=== PATIENT | male | born 1955 | race Caucasian/White ===

== ENCOUNTER 2017-02-03 12:54 | Emergency (ER) | payer OTHER ==
[~2017-02-03] VITALS: Ht 170.1 cm; Wt 77.1 kg
[~2017-02-03 12:54] MED LIST: ANAPROX DS550 MG PO; ASPIRIN FOR CHI81 MG PO; AUGMENTIN 875 M1 TAB PO; CALAN,ISOPTIN80 MG PO; MOTRIN800 MG PO; NKHM; PRILOSEC20 MG PO; TOPAMAX50 MG PO
== END 2017-02-03 18:59 | disposition short-term general hospital (02) ==
LOC: ED 12:54
DX: S92.002B Unspecified fracture of left calcaneus, initial encounter for open fracture (principal); F17.200 Nicotine dependence, unspecified, uncomplicated; Z88.5 Allergy status to narcotic agent; W17.89XA Other fall from one level to another, initial encounter; Y93.89 Activity, other specified; Y92.89 Other specified places as the place of occurrence of the external cause; Y99.8 Other external cause status

== ENCOUNTER → 2021-01-08 | Outpatient (CLI) | payer OTHER | END | disposition home or self-care (01) | LOC: CARD 07:13 | PROVIDERS: ATTEND Nurse Practitioner Family | DX: R01.1 Cardiac murmur, unspecified (principal) ==

== ENCOUNTER → 2021-12-05 | Outpatient (CLI) | payer OTHER | END | disposition home or self-care (01) | LOC: MRI 13:38 | PROVIDERS: ATTEND Nurse Practitioner Family | DX: I67.82 Cerebral ischemia (principal); G93.89 Other specified disorders of brain ==

== ENCOUNTER → 2022-07-14 | Outpatient (CLI) | payer OTHER | END | disposition home or self-care (01) | LOC: US 07:30 | PROVIDERS: ATTEND Internal Medicine | DX: I71.40 Abdominal aortic aneurysm, without rupture, unspecified (principal) ==